=== PATIENT | female | born 1970 | race Caucasian/White ===

== ENCOUNTER 2017-11-27 19:02 | Emergency (ER) | payer SELFPAY ==
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
== END 2017-11-27 20:12 | disposition home or self-care (01) ==
LOC: ERS 19:02
DX: S52.571A Other intraarticular fracture of lower end of right radius, initial encounter for closed fracture (principal); F41.9 Anxiety disorder, unspecified; F31.9 Bipolar disorder, unspecified; F17.210 Nicotine dependence, cigarettes, uncomplicated; V47.5XXA Car driver injured in collision with fixed or stationary object in traffic accident, initial encounter
CPT/HCPCS: 29125

== ENCOUNTER 2017-11-28 13:42 | Emergency (ER) | payer SELFPAY ==
[2017-11-28] MEDS ORDERED: Ketorolac Tromethamine 30 MG/ML VIAL ONE (14:34)
== END 2017-11-28 14:55 | disposition home or self-care (01) ==
LOC: ERS 13:42
DX: S52.571D Other intraarticular fracture of lower end of right radius, subsequent encounter for closed fracture with routine healing (principal); F41.9 Anxiety disorder, unspecified; F31.9 Bipolar disorder, unspecified; F43.10 Post-traumatic stress disorder, unspecified; F17.210 Nicotine dependence, cigarettes, uncomplicated; Z79.899 Other long term (current) drug therapy; V43.62XD Car passenger injured in collision with other type car in traffic accident, subsequent encounter
CPT/HCPCS: 96372; J1885

== ENCOUNTER 2017-11-30 15:28 | Emergency (ER) | payer SELFPAY | END 2017-11-30 17:43 | disposition home or self-care (01) | LOC: ERS 15:28 | DX: S52.91XD Unspecified fracture of right forearm, subsequent encounter for closed fracture with routine healing (principal); Z46.89 Encounter for fitting and adjustment of other specified devices; F20.9 Schizophrenia, unspecified; F31.9 Bipolar disorder, unspecified; F41.9 Anxiety disorder, unspecified; F43.10 Post-traumatic stress disorder, unspecified; F17.210 Nicotine dependence, cigarettes, uncomplicated; Z79.899 Other long term (current) drug therapy | CPT/HCPCS: 99283 ==

== ENCOUNTER 2019-02-03 11:35 | Emergency (ER) | payer OTHER, SELFPAY ==
--- NOTE | 2019-02-03 12:58 | RAD ---
Left hand 3 views HISTORY: Left hand pain. FINDINGS: Mild diffuse joint space narrowing with minimal osteophytosis. Wrist is also involved. [place] gn-appearing well-circumscribed oval lucency at the medial margin of the distal ulna involves the base of the styloid may represent a bone cyst. No acute fracture, dislocation, or aggressive osseous erosions. 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
== END 2019-02-03 13:13 | disposition home or self-care (01) ==
LOC: SCSER 11:35
DX: M79.89 Other specified soft tissue disorders (principal); I10 Essential (primary) hypertension; F20.9 Schizophrenia, unspecified; F31.9 Bipolar disorder, unspecified; F41.9 Anxiety disorder, unspecified; F17.210 Nicotine dependence, cigarettes, uncomplicated; Z79.899 Other long term (current) drug therapy

== ENCOUNTER 2020-01-08 11:02 | Outpatient (CLI) | payer OTHER ==
--- NOTE | 2020-01-08 12:18 | RAD ---
2 VIEWS LEFT HIP: Date: 01/08/2020 COMPARISON: None. HISTORY: Fall with left hip pain. FINDINGS: Two views of the left hip show no evidence of acute fracture or dislocation. No degenerative changes are seen. No soft tissue swelling is seen. IMPRESSION: No evidence of acute osseous abnormality. POS: [facility]
--- NOTE | 2020-01-08 15:05 | RAD ---
LUMBAR SPINE 3 VIEWS: Date: 01/08/2020 HISTORY: Fall with back pain. FINDINGS: Lumbar vertebra maintain normal height and alignment. The disc spaces are preserved. Very mild degene rative spurring. Mild facet hypertrophy. No compression or acute abnormality. No listhesis. IMPRESSION: Very mild degenerative change. POS: [facility]
== END 2020-01-08 11:03 | disposition home or self-care (01) ==
LOC: BICRAD 11:02
PROVIDERS: ATTEND Internal Medicine
DX: Z02.71 Encounter for disability determination (principal); M47.816 Spondylosis without myelopathy or radiculopathy, lumbar region
CPT/HCPCS: 72100

== ENCOUNTER 2025-02-06 09:34 | Emergency (ER) | payer OTHER, SELFPAY | END 2025-02-06 11:18 | disposition home or self-care (01) | LOC: ERS 09:34 | DX: S60.052A Contusion of left little finger without damage to nail, initial encounter (principal); I10 Essential (primary) hypertension; F17.200 Nicotine dependence, unspecified, uncomplicated; W23.0XXA Caught, crushed, jammed, or pinched between moving objects, initial encounter | CPT/HCPCS: 99283 ==